=== PATIENT | male | born 1940 | race Caucasian/White ===

== ENCOUNTER 2023-02-26 14:29 | Emergency (ER) | payer OTHER ==
[~2023-02-26] VITALS: Ht 177.8 cm; Wt 81.8 kg
[~2023-02-26 14:29] MED LIST: IBUP-1456 PO; LORA-1120 PO; NOR10T PO
[2023-02-26 15:05] LABS: Basophils # (auto) 0 10 ^3/uL (0-0.2); Basophils % (auto) 0.3 % (0.0-2.0); Eosinophils # (auto) 0.1 10 ^3/uL (0-0.8); Eosinophils % (auto) 2.6 % (0.0-7.0); Hematocrit 42.3 % (41.0-53.0); Hemoglobin 14.6 g/dL (13.5-17.5); Lymphocytes # (auto) 1.3 10 ^3/uL (0.4-5.4); Lymphocytes % (auto) 25.9 % (10.0-50.0); Mean Corpuscular Hemoglobin 32.5 pg (28.0-32.0); Mean Corpuscular Hgb Conc. 34.5 g/dL (32.0-36.0); Mean Corpuscular Volume 94.3 fL (80.0-100.0); Monocytes # (auto) 0.6 10 ^3/uL (0-1.3); Monocytes % (auto) 12.8 % (0.0-12.0); Neutrophils # (auto) 2.9 10 ^3/uL (1.6-8.6); Neutrophils % (auto) 58.4 % (37.0-80.0); Nucleated Red Blood Cells % 0.1 %; Red Blood Cells 4.48 10^6/uL (4.5-5.90); Red Cell Distribution Width 13.4 % (11.8-14.3); White Blood Cell 4.9 10^3/uL (4.4-10.8)
[2023-02-26 15:19] LABS: Albumin 3.1 g/dL (3.4-5.0); Potassium 3.8 mmol/L (3.5-5.1)
[2023-02-26 15:22] LABS: BUN/Creatinine Ratio 15.8 (10.0-20.0); Bilirubin, Total 2.2 mg/dL (0.2-1.0); Calcium 8.5 mg/dL (8.5-10.1)
[2023-02-26 20:05] VITALS: PULSE 65; RESP 16; O2SAT 96
[2023-02-26 20:54] LABS: Urine Bacteria NONE SEEN /hpf (None Seen); Urine Blood Negative /uL (Negative); Urine Specific Gravity 1.018 (1.001-1.035); Urine WBC <1 /hpf (0 - 3)
[2023-02-27 08:00] VITALS: PULSE 69; RESP 16; O2SAT 95
[2023-02-27 14:08] VITALS: PULSE 71; RESP 16; O2SAT 92
[2023-02-27 17:30] VITALS: TEMP 98.1
[2023-02-27 19:35] VITALS: PULSE 72; RESP 20; O2SAT 95
[2023-02-27] MEDS ORDERED: LORazepam 2MG/ML-1ML VIAL IV ONE (22:00)
[2023-02-28] MEDS ORDERED: LORazepam 2MG/ML-1ML VIAL ONE (01:30)
[2023-02-28] MEDS ORDERED: LORazepam 2MG/ML-1ML VIAL IM ONE (01:30)
[2023-02-28 08:00] VITALS: PULSE 64; RESP 15; O2SAT 95
[2023-02-28] MEDS ORDERED: ACETAMINOPHEN 325 MG TAB PO PRN (10:45)
[2023-02-28] MEDS ORDERED: SODIUM CHLORIDE 0.9% 1,000 ML IV ONE (10:45)
[2023-02-28] MEDS ORDERED: IOHEXOL 300 MG/ML 100ML BOTTLE IJ ONE (10:58)
[2023-02-28 18:25] VITALS: BP 119/70; PULSE 75; RESP 18; O2SAT 98
== END 2023-02-28 18:47 | disposition home or self-care (01) ==
LOC: ER 14:29 → EDBD 14:29 → EDUNIT# 14:29 → ER 02-28 18:47
DX: F03.90 Unspecified dementia, unspecified severity, without behavioral disturbance, psychotic disturbance, mood disturbance, and anxiety (principal); J45.909 Unspecified asthma, uncomplicated; F17.210 Nicotine dependence, cigarettes, uncomplicated
CPT/HCPCS: 36415; 70450; 80053; 81001; 85025; 93005; 96372; 96374; 97163; 99285; J2060

== ENCOUNTER 2023-11-30 12:14 | Emergency (ER) | payer OTHER ==
[~2023-11-30] VITALS: Ht 188 cm; Wt 80.0 kg
[2023-11-30] MEDS: SODIUM CHLORIDE 0.9% 1,000 ML IVB ONE (13:11)
[2023-11-30 13:17] VITALS: PULSE 54; RESP 11; O2SAT 100
[2023-11-30 13:29] LABS: Urine Bacteria None Seen /hpf (None Seen); Urine Blood Negative /uL (Negative); Urine Clarity Clear (Clear); Urine Color Yellow (Yellow); Urine Hyaline Cast FEW /lpf (0 - 2); Urine Mucus FEW (None Seen); Urine Protein, UAD TRACE (Negative); Urine Urobilinogen Normal (Negative); Urine WBC 1 /hpf (0 - 3)
[2023-11-30 13:40] LABS: Amphetamine Screen, Urine Neg (NEGATIVE); Barbiturate Scree,Urine Neg (NEGATIVE); Benzodiazephine Screen, Urine Neg (NEGATIVE); Cocaine Screen, Urine Neg (NEGATIVE); Opiate Scree,Urine Neg (NEGATIVE)
[2023-11-30 13:41] LABS: Cannabinoid Screen, Urine Neg (NEGATIVE); Phencyclidine Screen, Urine Neg (NEGATIVE)
[2023-11-30 14:06] LABS: Alanine Aminotransferase 88 U/L (7-40); Albumin 3.6 g/dL (3.2-4.8); Alkaline Phosphatase 89 U/L (46-116); Anion Gap 11 (5-15); Aspartate Aminotransferase 94 U/L (13-40); BUN/Creatinine Ratio 40.7 (10.0-20.0); Blood Alcohol 5.7 mg/dL (<10); Blood Urea Nitrogen 33 mg/dL (9-23); Calcium 9.5 mg/dL (8.5-10.1); Carbon Dioxide 23 mmol/L (20-30); Chloride 110 mmol/L (98-107); Glucose 143 mg/dL (74-106); Potassium 3.5 mmol/L (3.5-5.1); Sodium 144 mmol/L (136-145)
[2023-11-30 14:07] LABS: Bilirubin, Total 1.9 mg/dL (0.2-1.0); Total Protein 6.7 g/dL (5.7-8.2)
[2023-11-30] MEDS: ATROPINE SULF 1 MG/10ml SYR IV ONE (14:07)
[2023-11-30] MEDS: DOPamine 1600MCG/ML D5W 250 ML IV SCH (14:07)
[2023-11-30 14:20] LABS: Basophils # (auto) 0 10 ^3/uL (0-0.2); Basophils % (auto) 0.4 % (0.0-2.0); Eosinophils # (auto) 0 10 ^3/uL (0-0.8); Eosinophils % (auto) 0.9 % (0.0-7.0); Hematocrit 45.1 % (41.0-53.0); Hemoglobin 15.4 g/dL (13.5-17.5); Lymphocytes # (auto) 0.6 10 ^3/uL (0.4-5.4); Lymphocytes % (auto) 23.7 % (10.0-50.0); Mean Corpuscular Hemoglobin 32.4 pg (28.0-32.0); Mean Corpuscular Hgb Conc. 34.1 g/dL (32.0-36.0); Mean Corpuscular Volume 95.1 fL (80.0-100.0); Monocytes # (auto) 0.1 10 ^3/uL (0-1.3); Monocytes % (auto) 3.7 % (0.0-12.0); Neutrophils # (auto) 1.9 10 ^3/uL (1.6-8.6); Neutrophils % (auto) 71.3 % (37.0-80.0); Nucleated Red Blood Cells % 1.9 %; Red Blood Cells 4.74 10^6/uL (4.5-5.90); Red Cell Distribution Width 15.4 % (11.8-14.3); White Blood Cell 2.7 10^3/uL (4.4-10.8)
[2023-11-30 15:27] LABS: Lactic Acid w/Reflex 3.4 mmol/L (0.4-2.0)
[2023-11-30] MEDS: NOREPINEPHRINE 8 MG/250ML KIT 250 ML IV SCH (16:22)
[2023-11-30] MEDS: SODIUM CHLORIDE 0.9% 2,400 ML IV ONE (16:43)
[2023-11-30] MEDS: VANCOMYCIN 1GM/200ML 200 ML IV ONE (16:44)
[2023-11-30] MEDS: cefTRIAXone 1GM/50ML D5W 50 ML IV ONE (16:44)
[2023-11-30] MEDS: LORazepam 2MG/ML-1ML VIAL IV ONE ×2 (19:21→20:00)
[2023-11-30] MEDS: MORPHINE SULFATE INJ 2 MG/ml SYRG IV ONE (19:21)
[2023-11-30] MEDS ORDERED: MORPHINE SULFATE INJ 2 MG/ml SYRG IV PRN (20:00)
[2023-12-01 05:41] VITALS: PULSE 48; RESP 22; O2SAT 100
[2023-12-01 07:40] VITALS: PULSE 40; RESP 22; O2SAT 100
[2023-12-01 19:30] VITALS: PULSE 50; RESP 20; O2SAT 100
[2023-12-03 08:00] VITALS: PULSE 46; RESP 22; O2SAT 97
[2023-12-03 09:30] VITALS: BP 131/69; PULSE 52; RESP 20; TEMP 99.5; O2SAT 97
== END 2023-12-03 09:55 | disposition hospice, home (50) ==
LOC: EDBD 12:14 → ER 12:14
DX: A41.9 Sepsis, unspecified organism (principal); R41.82 Altered mental status, unspecified; T68.XXXA Hypothermia, initial encounter; I95.9 Hypotension, unspecified; R07.89 Other chest pain; F17.210 Nicotine dependence, cigarettes, uncomplicated; J45.909 Unspecified asthma, uncomplicated; Z79.1 Long term (current) use of non-steroidal anti-inflammatories (NSAID); Z79.899 Other long term (current) drug therapy
CPT/HCPCS: 36415; 70450; 71045; 80053; 80307; 80320; 81001; 83605; 84484; 85025; 87040; 93005; 96361; 96365; 96366; 96368; 96375; 99291; J0696; J1265; J2060; J2270; J3370; J7030